=== PATIENT | male | born 1980 | race African-American/Black ===

== ENCOUNTER 2017-09-26 09:43 | Emergency (ER) | payer OTHER ==
[~2017-09-26] VITALS: Ht 182.9 cm; Wt 127.0 kg
[2017-09-26 09:57] VITALS: BP 149/97
[2017-09-26] MEDS ORDERED: LORazepam 2MG/ML-1ML VIAL ONE (13:22)
[2017-09-27] MEDS ORDERED: LEVE500T22 PO (00:45)
== END 2017-09-26 09:58 | disposition left against medical advice (07) ==
LOC: ER 09:43
DX: F41.9 Anxiety disorder, unspecified (principal); F17.210 Nicotine dependence, cigarettes, uncomplicated
CPT/HCPCS: 99283; J2060; J7030

== ENCOUNTER 2017-09-26 13:02 | Inpatient (IN) | payer OTHER ==
[~2017-09-26] VITALS: Ht 188 cm; Wt 126.9 kg
[2017-09-26] MEDS ORDERED: AMMONIA 0.33 ML INHALANT IN ONE (13:24)
[2017-09-26] MEDS ORDERED: SODIUM CHLORIDE 0.9% 1,000 ML IV ONE (14:05)
[2017-09-26 14:36] LABS: Basophils # (auto) 0 uL; Basophils % (auto) 0.4 % (0.0-2.0); Eosinophils # (auto) 0.1 uL; Eosinophils % (auto) 0.4 % (0.0-7.0); Hematocrit 49.9 % (41.0-53.0); Hemoglobin 16.2 g/dL (13.5-17.5); Lymphocytes # (auto) 0.5 uL; Lymphocytes % (auto) 4.3 % (10.0-50.0); Mean Corpuscular Hgb Conc. 32.5 g/dL (32.0-36.0); Mean Corpuscular Volume 92.3 fL (80.0-100.0); Monocytes # (auto) 0.5 uL; Monocytes % (auto) 4.1 % (0.0-12.0); Neutrophils # (auto) 11.7 uL; Neutrophils % (auto) 90.8 % (37.0-80.0); Nucleated Red Blood Cells % 0.1 %; Platelet Count (auto) 149 10^3/uL (140-450); Red Blood Cells 5.41 10^6/uL (4.5-5.90); Red Cell Distribution Width 14.3 % (11.8-14.3); White Blood Cell 12.8 10^3/uL (4.4-10.8)
[2017-09-26 14:57] LABS: Alanine Aminotransferase 22 U/L (16-61); Albumin 3.5 g/dL (3.4-5.0); Alkaline Phosphatase 76 U/L (45-117); Anion Gap 10 (5-15); Aspartate Aminotransferase 23 U/L (15-37); BUN/Creatinine Ratio 7.9; Bilirubin, Total 0.6 mg/dL (0.2-1.0); Blood Urea Nitrogen 9 mg/dL (7-18); Calcium 8.4 mg/dL (8.5-10.1); Carbon Dioxide 22 mmol/L (21-32); Chloride 109 mmol/L (98-107); GFR African American 94 mL/min; GFR Non-African American 78 mL/min; Glucose 108 mg/dL (74-106); Potassium 3.8 mmol/L (3.5-5.1); Sodium 141 mmol/L (136-145); Total Protein 7.2 g/dL (6.4-8.2)
[2017-09-26] MEDS ORDERED: LEVETIRACETAM 500 MG TAB PO ONE (15:45)
[2017-09-26] MEDS ORDERED: cefTRIAXone 1GM/10ml IVPUSH 10 ML IV ONE ×2 (16:30→18:30)
[2017-09-26] MEDS ORDERED: HYDROcodone-ACET 5/325MG TAB PO PRN (18:30)
[2017-09-26] MEDS ORDERED: ONDANSETRON HCL 4 MG/2 ML VIAL IV PRN (18:30)
[2017-09-26] MEDS ORDERED: ACETAMINOPHEN 325 MG TAB PO PRN (18:30)
[2017-09-26] MEDS ORDERED: MORPHINE SULFATE 4 MG/ML SYR/VIAL IV PRN ×2 (18:30)
[2017-09-26] MEDS ORDERED: NITROGLYCERIN 0.4 MG SL TAB SL PRN (18:30)
[2017-09-26] MEDS ORDERED: AZITHROMYCIN 500MG/ 250ML 250 ML IV ONE (18:30)
[2017-09-26] MEDS ORDERED: DOCUSATE SOD 100 MG CAP PO PRN (18:30)
[2017-09-26] MEDS ORDERED: LORazepam 2MG/ML-1ML VIAL IV PRN (18:30)
[2017-09-26] MEDS: SODIUM CHLORIDE 0.9% 1,000 ML IV SCH (18:47)
[2017-09-26 20:15] VITALS: BP 130/84
[2017-09-26 20:30] VITALS: BP 130/84
[2017-09-26] MEDS: FAMOTIDINE 20 MG TAB PO SCH (21:55)
[2017-09-26] MEDS: LEVETIRACETAM 500 MG TAB PO SCH (21:55)
[2017-09-26 22:24] LABS: Urine Bacteria FEW /hpf (None Seen); Urine Blood Negative /uL (Negative); Urine Specific Gravity 1.012 (1.001-1.035); Urine WBC 4 /hpf (0 - 3)
[2017-09-27] MEDS ORDERED: LEVE500T22 PO (00:45)
[2017-09-27 04:44] VITALS: BP 102/55
[2017-09-27 07:26] LABS: Basophils # (auto) 0 uL; Basophils % (auto) 0.2 % (0.0-2.0); Eosinophils # (auto) 0.1 uL; Eosinophils % (auto) 0.9 % (0.0-7.0); Hematocrit 44.2 % (41.0-53.0); Hemoglobin 14.3 g/dL (13.5-17.5); Lymphocytes # (auto) 1.7 uL; Mean Corpuscular Hemoglobin 30.2 pg (28.0-32.0); Mean Corpuscular Hgb Conc. 32.4 g/dL (32.0-36.0); Mean Corpuscular Volume 93.1 fL (80.0-100.0); Monocytes # (auto) 0.8 uL; Neutrophils # (auto) 10.7 uL; Neutrophils % (auto) 79.9 % (37.0-80.0); Platelet Count (auto) 141 10^3/uL (140-450); Red Blood Cells 4.75 10^6/uL (4.5-5.90); White Blood Cell 13.4 10^3/uL (4.4-10.8)
[2017-09-27 07:41] LABS: BUN/Creatinine Ratio 6.7; Calcium 7.9 mg/dL (8.5-10.1); Potassium 3.5 mmol/L (3.5-5.1)
[2017-09-27 07:44] LABS: Bilirubin, Total 1.1 mg/dL (0.2-1.0); Total Protein 6.1 g/dL (6.4-8.2)
[2017-09-27 08:00] VITALS: BP 92/48
[2017-09-27 09:00] VITALS: BP 92/48
[2017-09-27] MEDS ORDERED: AZITHROMYCIN 500MG/ 250ML 250 ML IV SCH (10:00)
[2017-09-27] MEDS: MULTIPLE VITAMIN TAB PO SCH (10:05)
[2017-09-27] MEDS: LEVETIRACETAM 500 MG TAB PO SCH ×2 (10:05→21:42)
[2017-09-27] MEDS: FAMOTIDINE 20 MG TAB PO SCH ×2 (10:05→21:42)
[2017-09-27] MEDS: cefTRIAXone 1GM/10ml IVPUSH 10 ML IV SCH (10:06)
[2017-09-27] MEDS: SODIUM CHLORIDE 0.9% 1,000 ML IV SCH (11:12)
[2017-09-27] MEDS: CLINDAMYCIN 900MG IV 50 ML IV SCH ×2 (11:12→18:32)
[2017-09-27 12:29] VITALS: BP 110/65
[2017-09-27 17:00] VITALS: BP 90/62
[2017-09-27 22:00] VITALS: BP 110/52
[2017-09-28] MEDS: CLINDAMYCIN 900MG IV 50 ML IV SCH ×2 (02:56→10:01)
[2017-09-28] MEDS: SODIUM CHLORIDE 0.9% 1,000 ML IV SCH (03:27)
[2017-09-28 06:24] LABS: Basophils # (auto) 0 uL; Basophils % (auto) 0.6 % (0.0-2.0); Eosinophils # (auto) 0.3 uL; Eosinophils % (auto) 3.7 % (0.0-7.0); Hematocrit 42.9 % (41.0-53.0); Hemoglobin 13.9 g/dL (13.5-17.5); Lymphocytes # (auto) 1.7 uL; Lymphocytes % (auto) 21.3 % (10.0-50.0); Mean Corpuscular Hemoglobin 30.1 pg (28.0-32.0); Mean Corpuscular Hgb Conc. 32.5 g/dL (32.0-36.0); Mean Corpuscular Volume 92.8 fL (80.0-100.0); Monocytes # (auto) 0.7 uL; Monocytes % (auto) 9.2 % (0.0-12.0); Neutrophils # (auto) 5.2 uL; Neutrophils % (auto) 65.2 % (37.0-80.0); Nucleated Red Blood Cells % 0.1 %; Platelet Count (auto) 137 10^3/uL (140-450); Red Blood Cells 4.62 10^6/uL (4.5-5.90); Red Cell Distribution Width 14.1 % (11.8-14.3); White Blood Cell 7.9 10^3/uL (4.4-10.8)
[2017-09-28 06:38] LABS: BUN/Creatinine Ratio 9.8; Calcium 8.2 mg/dL (8.5-10.1); Potassium 3.6 mmol/L (3.5-5.1)
[2017-09-28] MEDS: cefTRIAXone 1GM/10ml IVPUSH 10 ML IV SCH (08:28)
[2017-09-28 08:44] VITALS: BP 100/62
[2017-09-28] MEDS: MULTIPLE VITAMIN TAB PO SCH (09:23)
[2017-09-28] MEDS: LEVETIRACETAM 500 MG TAB PO SCH (09:23)
[2017-09-28] MEDS: FAMOTIDINE 20 MG TAB PO SCH (09:23)
[2017-09-28 11:16] VITALS: BP 100/62
[2017-09-28 12:00] VITALS: BP 102/66
== END 2017-09-28 13:20 | disposition home or self-care (01) | DRG 720 ==
LOC: EDBD 13:02 → ER 13:02 → TELE 13:03 → TELE-CENTR 20:30
PROVIDERS: ADMIT Internal Medicine; ATTEND Internal Medicine
DX: A41.9 Sepsis, unspecified organism (principal); J69.0 Pneumonitis due to inhalation of food and vomit; E83.51 Hypocalcemia; G40.409 Other generalized epilepsy and epileptic syndromes, not intractable, without status epilepticus; E66.9 Obesity, unspecified; F17.210 Nicotine dependence, cigarettes, uncomplicated; Z79.899 Other long term (current) drug therapy; Z82.49 Family history of ischemic heart disease and other diseases of the circulatory system; Z82.5 Family history of asthma and other chronic lower respiratory diseases; Z91.14 Patient's other noncompliance with medication regimen; Z68.35 Body mass index [BMI] 35.0-35.9, adult
CPT/HCPCS: 36415; 70450; 71045; 71250; 80048; 80053; 81001; 82542; 83880; 84484; 85025; 87040; 87070; 87081; 87086; 87205; 96361; 96365; 96375; J3490